=== PATIENT | male | born 1950 | race Caucasian/White ===

== ENCOUNTER 2023-06-30 15:05 | Emergency (ER) | payer MEDICARE, BC ==
[2023-06-30] MEDS ORDERED: NOREPINEPHRINE 8 MG/250 ML-D5W 250 ML ONE (15:10)
[2023-06-30] MEDS ORDERED: Ondansetron PF 4 MG/2 ML Vial ONE (15:10)
[2023-06-30] MEDS ORDERED: fentaNYL 50 mcg/mL 1 mL Vial ONE ×2 (15:11→15:54)
[2023-06-30] MEDS ORDERED: Sodium Bicarb 50 MEQ/50 ML Abboject 8.4% SYRINGE ONE (15:15)
[2023-06-30] MEDS ORDERED: Calcium Chloride 1 GM/10 ML Abboject SYRINGE ONE (15:15)
[2023-06-30] MEDS ORDERED: Rocuronium Bromide 10 MG/ML (10ML VIAL) ONE (15:15)
[2023-06-30 15:26] LABS: #Monocytes 1.3 thou/uL (0.11-0.59); #Neutrophils 8.6 thou/uL (1.40-6.50); %Basophils 0.3 % (0.0-1.0); %Eosinophils 0.3 % (0.0-10.0); %Lymphocytes 15.7 % (21.0-51.0); %Monocytes 10.8 % (0.0-10.0); %Neutrophils 72.3 % (42.0-75.0); Hematocrit 31.2 % (42.0-52.0); Hemoglobin 10.4 g/dL (14.0-18.0); Mean Corpuscular HGB CONC 33.3 g/dL (32.0-36.0); Mean Corpuscular Hemoglobin 33.3 pg (27.0-31.0); Mean Platelet Volume 10.3 fL (7.4-10.4); Platelet Count 150 10x3/uL (130-400); RBC Distribution Width 13.2 % (11.5-14.5); Red Blood Cell (RBC) Count 3.12 mill/uL (4.70-6.10); White Blood Cell (WBC) Count 11.9 10x3/uL (4.8-10.8)
[2023-06-30 15:52] LABS: ALT (SGPT) 16 U/L (8-55); AST (SGOT) 23 U/L (5-34); Albumin 3.6 g/dL (3.4-4.8); Alkaline Phosphatase 53 U/L (40-110); Anion Gap 18 mmol/L (10-20); BUN (Urea Nitrogen) 18 mg/dL (8.4-25.7); Bilirubin, Total 1.1 mg/dL (0.2-1.2); Calc. Creatinine Clearance 0 mL/min (70-130); Carbon Dioxide 16 mmol/L (23-31); Chloride 103 mmol/L (98-107); Estimated GFR 40; Globulin 1.9 g/dL (2.4-3.5); Glucose 299 mg/dL (83-110); Potassium 3.4 mmol/L (3.5-5.1); Protein, Total 5.5 g/dL (5.8-8.1); Sodium 134 mmol/L (136-145)
[2023-06-30] MEDS ORDERED: Ketamine 50 MG/ML (10ML VIAL) ONE (16:31)
[2023-06-30] MEDS ORDERED: DOPamine 400 MG/D5W 250 ML 250 ML ONE (16:34)
[2023-06-30 16:59] LABS: Actual Bicarbonate (HCO3v) 15.9 mEq/L (22-28); Base Excess -11.4 mEq/L (-2.0 to +3.0); Calcium, Ionized (venous) 1.18 mmol/L (1.16-1.32); Chloride (VBG) 103 mmol/L (98-106); Hematocrit-VBG 34 % (42.0-52.0); Hemoglobin (Hb) 11.5 g/dL (12.6-17.4); Potassium (VBG) 3.32 mmol/L (3.70-5.30); Sodium 136 mmol/L (133-146)
[2023-06-30 17:01] LABS: pH (venous) 7.204 (7.32-7.43)
[2023-06-30] MEDS ORDERED: Fentanyl CADD 100 ML IV SCH (17:15)
== END 2023-06-30 17:25 | disposition expired ==
LOC: ERS 15:05
DX: I71.30 Abdominal aortic aneurysm, ruptured, unspecified (principal); I10 Essential (primary) hypertension; E11.9 Type 2 diabetes mellitus without complications
CPT/HCPCS: 31500; 36430; 36556; 51702; 71045; 80053; 82805; 82962; 83605; 85025; 86850; 86900; 86901; 86920; 87040; 93005; 94002; 96365; 96366; 96368; 96375; 96376; 99291; J3010; P9012; P9016; P9035; P9048; P9059; 36415; 36416; J1265; J2405